=== PATIENT | male | born 1975 | race Caucasian/White ===

== ENCOUNTER 2018-07-21 07:45 | Outpatient (CLI) | payer BC ==
--- NOTE | 2018-07-21 10:30 | CT ---
ABDOMEN AND PELVIS CT SCAN WITHOUT IV CONTRAST: HISTORY: A 43-year-old male with a history of left flank pain for two weeks with fever for several days. Hist ory of prior kidney stones. Left ureteral stone. FINDINGS: The lung bases are clear. Prominent fatty changes of the liver with some fatty sparing adjacent to t he gallbladder. The pancreas, spleen, and adrenal glands are unremarkable. Unremarkable right kidne y. There is a 0.9 x 1.1 cm in diameter obstructing proximal left ureteral calculus with hydronephros is of the left kidney with several small left lower pole nonobstructing renal calculi. Normal appear ing appendix. Unremarkable urinary bladder. IMPRESSION: 1. Obstructing proximal left ureteral calculus. 2. Left renal hydronephrosis. 3. Several small, nonobstructing left lower pole renal calculi. 4. Fatty changes in the liver. 5. No CT evidence for acute appendicitis. The findings were discussed with Dr. Laws by phone at 8:55 a.m. CODE CR POS: SUSI
== END 2018-07-21 07:46 | disposition home or self-care (01) ==
LOC: SCSCT 07:45
PROVIDERS: ATTEND Urology
DX: N13.2 Hydronephrosis with renal and ureteral calculous obstruction (principal); K76.0 Fatty (change of) liver, not elsewhere classified
CPT/HCPCS: 74176

== ENCOUNTER 2018-08-22 06:46 | Outpatient (CLI) | payer BC ==
[2018-08-22 13:24] LABS: Mean Corpuscular HGB CONC 33.6 g/dL (32.0-36.0); Mean Corpuscular Hemoglobin 28.7 pg (27.0-31.0); Mean Corpuscular Volume 85.5 fL (78.0-98.0); Mean Platelet Volume 8.9 fL (7.4-10.4); Platelet Count 234 thou/uL (130-400); RBC Distribution Width 12.4 % (11.5-14.5); Red Blood Cell (RBC) Count 4.89 mill/uL (4.70-6.10); White Blood Cell (WBC) Count 6.4 thou/uL (4.8-10.8)
[2018-08-22 13:29] LABS: Platelet Count 234 thou/uL (130-400)
[2018-08-22 13:34] LABS: INR-International Normal Ratio 0.9; PTT 27.7 SEC (22.9-36.1)
[2018-08-22 13:46] LABS: Anion Gap 13 mmol/L (10-20); BUN (Urea Nitrogen) 9 mg/dL (8.9-20.6); Calc. Creatinine Clearance 0 mL/min (70-130); Calcium 9.9 mg/dL (7.8-10.44); Carbon Dioxide 23 mmol/L (22-29); Chloride 104 mmol/L (98-107); Estimated GFR-MDRD 85; Glucose 143 mg/dL (70-105); Potassium 4.3 mmol/L (3.5-5.1); Sodium 136 mmol/L (136-145)
--- NOTE | 2018-08-22 16:19 | EKG ---
Test Reason : Blood Pressure : / mmHG Vent. Rate : 071 BPM Atrial Rate : 071 BPM P-R Int : 158 ms QRS Dur : 092 ms QT Int : 374 ms P-R-T Axes : 047 037 027 degrees QTc Int : 406 ms Normal sinus rhythm Normal ECG No previous ECGs available Confirmed by DR. Guicho JARAMILLO ([id number]) on 08/22/2018 4:19:35 PM Referred By: CORI Confirmed By:DR. Guicho JARAMILLO
== END 2018-08-22 06:47 | disposition home or self-care (01) ==
LOC: LABBT 06:46
PROVIDERS: ATTEND Urology
DX: Z01.818 Encounter for other preprocedural examination (principal); N20.1 Calculus of ureter
CPT/HCPCS: 80048; 85027; 85576; 85610; 85730; 93005; 93010

== ENCOUNTER 2018-08-23 06:05 | Day surgery (SDC) | payer BC ==
[2018-08-22 12:46] VITALS: BMI 33.0
[2018-08-23] MEDS ORDERED: Fentanyl 100 MCG/2 ML VIAL ONE ×2 (06:32→09:21)
[2018-08-23] MEDS ORDERED: Iothalamate Meglumine 60% 50 ML VIAL FS ONE (06:50)
[2018-08-23] MEDS ORDERED: Midazolam HCl 2 mg/2 ml Vial ONE (07:26)
--- NOTE | 2018-08-23 07:46 | RAD ---
KUB: Date: 08/23/18 COMPARISON: 07/26/18. HISTORY: Preoperative patient. FINDINGS: There is a calcification measuring 8-9 mm in craniocaudal dimension to the left of the left L3 transv erse process, which suggests a stone within the left ureter. Additional calcifications in the left up per quadrant suggest multiple subcentimeter intrarenal calculi on the left, measuring up to approxima tely 3.0 mm. The bowel gas pattern appears nonobstructed. IMPRESSION: Findings suggesting a proximal left ureteral calculus measuring in the 8-9 mm range with additional s mall left renal stones. POS: SUSI
--- NOTE | 2018-08-23 10:30 | OP ---
DATE OF PROCEDURE: 08/23/2018 PREOPERATIVE DIAGNOSIS: Left midureteral stone about 1.1 cm in largest diameter. PROCEDURE PERFORMED: Left extracorporeal shock wave lithotripsy. ANESTHETIC: General. EBL: Not recorded. FINDINGS: There is a 1.1 cm left midureteral stone that was easily visualized, it was treated with a total of 3500 shocks, 1200 level 4 and 2300 under level 5. It did appear to fragment very well and a stent was not placed. DESCRIPTION OF PROCEDURE: Obtained written verbal consent from the patient and after documenting normal preoperative blood work, initially we could see his stone well on his preoperative KUB. He was taken to the operating suite. He was placed in supine position on the treatment table. PlexiPulses were placed in his lower extremities and turned on. He was given a general anesthetic and oral obturator intubation. He was coupled to the lithotripsy unit. The stone was easily visualized. The stone was placed in treatment focal point, shockwave therapy was commenced, low KUB and then slowly worked up to level 4, which was stayed out for 1200 shocks and up to the level 5. After about 800 to 1000 shocks, it was obvious the stone was breaking up. We continued to treat it having to reimaging and reposition as the stone spread out along the course of the midureter. Because it broke up as well as it did, we did not feel that a stent was necessary. So, after 3500 shocks were done, the procedure was terminated. He was awakened and extubated and taken by stretcher to recovery room. Job ID: [id number]
[2018-08-23] MEDS ORDERED: Dexamethasone 20 MG/5 ML VIAL ONE (15:30)
[2018-08-23] MEDS ORDERED: Ondansetron PF 4 MG/2 ML Vial ONE (15:30)
[2018-08-23] MEDS ORDERED: ePHEDrine/0.9% NaCl/PF SYRINGE 50 mg/10 ml ONE (15:30)
[2018-08-23] MEDS ORDERED: PROPOFOL 200 MG/20 ML VIAL ONE (15:30)
[2018-08-23] MEDS ORDERED: Ketorolac Tromethamine 30 MG/ML VIAL ONE (15:30)
[2018-08-23] MEDS ORDERED: PHENYLEPHRINE-NS 100 MCG/ML 10 ML SYRINGE ONE (15:30)
[2018-08-23] MEDS ORDERED: Lidocaine 1% PF 5 ML VIAL ONE (15:30)
== END 2018-08-23 12:10 | disposition home or self-care (01) ==
LOC: SDC 06:05
PROVIDERS: ATTEND Urology
PROC: 0TF7XZZ Fragmentation in Left Ureter, External Approach (ICD-10-PCS; principal; 2018-08-23)
DX: N20.1 Calculus of ureter (principal); E11.9 Type 2 diabetes mellitus without complications; I10 Essential (primary) hypertension; Z79.82 Long term (current) use of aspirin; Z79.84 Long term (current) use of oral hypoglycemic drugs; Z79.899 Other long term (current) drug therapy; Z88.8 Allergy status to other drugs, medicaments and biological substances
CPT/HCPCS: 74018; 96374; J1100; J1885; J2001; J2250; J2405; J2704; J3010; Q9961